=== PATIENT | female | born 1975 | race Caucasian/White ===

== ENCOUNTER 2021-02-10 11:43 | Emergency (ER) | payer OTHER ==
[2021-02-10 11:52] VITALS: BP 120/73; PULSE 83; TEMP 98; BMI 29.9
[2021-02-10] MEDS ORDERED: DEXAMETHASONE LIQUID 0.5 MG/5 ML PO ONE (12:34)
[2021-02-10] MEDS ORDERED: DEXAMETHASONE SOD PHOSPHATE 10 MG/1 ML VIAL ONE (13:00)
== END 2021-02-10 13:07 | disposition home or self-care (01) ==
LOC: JER 11:43
DX: J06.9 Acute upper respiratory infection, unspecified (principal)
CPT/HCPCS: 99283-25; C9803; U0003; U0005